=== PATIENT | female | born 1960 | race Hispanic/Latino ===

== ENCOUNTER 2022-02-19 00:02 | Emergency (ER) | payer MEDICARE, OTHER ==
[~2022-02-19] VITALS: Ht 154.9 cm; Wt 100.0 kg
[~2022-02-19 00:02] MED LIST: METFORMIN HCL500 M2 PO; PROMETHAZINE HY25 M1 PO; TRESIBA100 UNIT/M; [UNRECOGNIZED DRUG - OTHER]
[2022-02-19 00:49] LABS: URINE BILIRUBIN - DIPSTICK NEGATIVE (NEGATIVE); URINE BLOOD DIPSTICK LARGE (NEGATIVE); URINE COLOR YELLOW; URINE GLUCOSE - DIPSTICK 100 mg/dL (NEGATIVE); URINE KETONE TRACE mg/dL (NEGATIVE); URINE PH 6.5 (4.5-8.0); URINE PROTEIN - DIPSTICK 100 mg/dL (NEG-TRACE)
[2022-02-19 00:49] LABS: HEMOGLOBIN 12.4 g/dl (12.0-16.0); IMMATURE GRANULOCYTES 0.2 % (0.0-5.0); MEAN CELL VOLUME 87.4 fL CALC (80.0-100.0); MEAN CORPUSCULAR HGB 27.8 pG CALC (26.0-32.0); MEAN CORPUSCULAR HGB CONC 31.8 g/dL CAL (32.0-36.0); NEUT# 5.97 thou/uL (2.00-7.15); RED BLOOD COUNT 4.46 mill/uL (4.20-5.60); RED CELL DISTRI WIDTH 15.2 % (11.5-15.5)
[2022-02-19 00:50] LABS: URINE LEUK ESTERASE LARGE (NEGATIVE); URINE NITRITE - DIPSTICK POSITIVE (Negative)
[2022-02-19 01:00] LABS: URINE BACTERIA MODERATE hpf; URINE MUCUS FEW hpf (NONE-FEW); URINE SQUAMOUS EPITHELIAL CELL FEW EPI/hpf (0-FEW); URINE WBC >100 WBC/hpf (0-5)
[2022-02-19 01:05] LABS: ALBUMIN 3.9 g/dL (3.2-5.0); ALKALINE PHOSPHATASE 125 u/l (38-126); ANION GAP 11 (6-22 (CALC)); BUN 13 mg/dL (7-17); BUN/CREATININE RATIO 15 (12-20 (CALC)); CARBON DIOXIDE 27 mmol/l (22-30); CHLORIDE 102 mmol/l (95-108); CREATININE 0.8 mg/dL (0.5-1.0); GFR FOR AFR.AMER. > 60 ML/MIN (>=60 (CALC)); GFR OTHER RACES > 60 ML/MIN (>=60 (CALC)); SGOT/AST 33 u/l (14-36); SODIUM 136 mmol/l (137-146); TOTAL PROTEIN 6.6 g/dL (6.3-8.2)
[2022-02-19 01:12] LABS: BILIRUBIN, TOTAL 0.4 mg/dL (0.0-1.4)
[2022-02-19] MEDS ORDERED: CIPROFLOXACN500 MG PO (01:19)
[2022-02-19] MEDS ORDERED: PYRIDIUM200 MG PO (01:19)
[2022-02-19 02:08] VITALS: BP 120/71
== END 2022-02-19 02:25 | disposition home or self-care (01) ==
LOC: ED 00:02
PROVIDERS: Emergency Medicine
DX: N39.0 Urinary tract infection, site not specified (principal); E11.9 Type 2 diabetes mellitus without complications; B96.20 Unspecified Escherichia coli [E. coli] as the cause of diseases classified elsewhere; Z87.440 Personal history of urinary (tract) infections; Z79.84 Long term (current) use of oral hypoglycemic drugs; Z79.4 Long term (current) use of insulin
CPT/HCPCS: J1956

== ENCOUNTER 2024-07-22 15:48 | Emergency (ER) | payer MEDICARE, OTHER ==
[2024-07-22] VITALS (10 sets, daily range): BP systolic 110–138; BP diastolic 59–78
[~2024-07-22] VITALS: Ht 154.9 cm; Wt 98.9 kg
[~2024-07-22 15:48] MED LIST changes: +CIPROFLOXACN500 MG PO; +PYRIDIUM200 MG PO
[2024-07-22] MEDS ORDERED: ASPIRIN 81 MG/TAB PO ONE (16:00)
[2024-07-22] MEDS ORDERED: MORPHINE SULFATE 4 MG/ML VIAL IV ONE (16:00)
[2024-07-22] MEDS ORDERED: ONDANSETRON HCl 4 MG/2 ML SDV IV ONE (16:05)
[2024-07-22 16:22] LABS: BASO% 0.4 % (0-3); EOS% 1.3 % (0-8); HEMATOCRIT 39.6 % (37.0-47.0); IMMATURE GRANULOCYTES 0.3 % (0.0-5.0); MEAN CELL VOLUME 88.6 fL CALC (80.0-100.0); MEAN CORPUSCULAR HGB 29.1 pG CALC (26.0-32.0); MEAN CORPUSCULAR HGB CONC 32.8 g/dL CAL (32.0-36.0); MONO% 9.9 % (2-13); NEUT# 4.39 thou/uL (2.00-7.15); NEUT% 56.1 % (42-76); RED BLOOD COUNT 4.47 mill/uL (4.20-5.60); RED CELL DISTRI WIDTH 13.7 % (11.5-15.5)
[2024-07-22 16:37] LABS: ALKALINE PHOSPHATASE 131 u/l (38-126); ANION GAP 15 (6-22 (CALC)); BILIRUBIN, TOTAL 0.3 mg/dL (0.02-1.3); BUN 9 mg/dL (8-23); BUN/CREATININE RATIO 10 (12-20 (CALC)); CARBON DIOXIDE 24 mmol/l (22-30); CHLORIDE 101 mmol/l (95-108); CREATININE 0.9 mg/dL (0.5-1.0); ESTIMATED GFR 73 ML/MIN (>=90 (CALC)); POTASSIUM 4.1 mmol/l (3.5-5.1); SGOT/AST 32 u/l (9-36); SODIUM 136 mmol/l (137-146); TOTAL PROTEIN 7.1 g/dL (6.3-8.2)
[2024-07-22] MEDS ORDERED: KETOROLAC TROMETHAMINE 15 MG/ML SDV IV ONE (17:25)
[2024-07-22] MEDS ORDERED: MOTRIN400 MG/TAB PO (19:01)
[2024-07-22] MEDS ORDERED: HYDROCO/APAP1 TA9 PO (19:01)
== END 2024-07-22 18:50 | disposition home or self-care (01) ==
LOC: ED 15:48
PROVIDERS: Family Medicine
DX: M25.512 Pain in left shoulder (principal); E11.9 Type 2 diabetes mellitus without complications; Z79.4 Long term (current) use of insulin; Z79.84 Long term (current) use of oral hypoglycemic drugs; R07.9 Chest pain, unspecified
CPT/HCPCS: J1885; J2405